=== PATIENT | male | born 1970 | race Caucasian/White ===

== ENCOUNTER → 2016-08-19 | Day surgery (SDC) | payer BC, OTHER ==
[~2016-08-19] MED LIST: BUPIVACAINE/EPINEPHRINE 0.5% 50 ML VIAL ONE; KETOROLAC TROMETHAMINE 30 MG/ML (IVP) VIAL IV PUSH ONE; LACTATED RINGER'S 1000 ML INJ 1,000 ML ONE; MIDAZOLAM HCL 2 MG/2 ML VIAL ONE; ONDANSETRON HCL 4 MG/2 ML VIAL IV PUSH ONE; PROPOFOL 200 MG/20 ML AMP IV ONE; ceFAZolin 2 GM PREMIX 50 ML ONE
--- NOTE | 2016-08-19 15:26 | TN ---
cc: GOMEZ GARCIA MD DATE OF SURGERY: 08/19/2016 PREOPERATIVE DIAGNOSIS Left inguinal hernia, reducible. POSTOPERATIVE DIAGNOSIS Left inguinal hernia, reducible, direct. SURGERY Laparoscopic left inguinal hernia repair with mesh. SURGEON Dr. Gomez Garcia [employer]TER[employer] INSPECTOR SURGEON Dr. Hunter Pardo. Due to the complexity of the laparoscopic case Dr. Pardo assisted in retraction and camera control throughout the entire case. ANESTHESIA General endotracheal. IV FLUIDS 750 cc. ESTIMATED BLOOD LOSS 5 cc. DRAINS None. COMPLICATIONS None. WOUND CLASSIFICATION Clean. FINDINGS Direct inguinal hernia. SPECIMEN None. COMPLICATIONS None. INDICATION The patient is a 45-year-old male who developed a bulging for approximately three months. He stated it continued to get worse. He does do heavy lifting and noted this complaint of bulging and mild pain. He was seen in the office for evaluation with findings of a left inguinal hernia. Therefore discussion was for laparoscopic left inguinal hernia repair. The patient agreed and elected to proceed. All the risks, benefits, alternatives and potential recurrences were discussed with the patient in detail. I advised no heavy lifting for approximately four weeks following surgery. DETAILS OF PROCEDURE The patient was taken to the operating suite and placed in supine position. He was prepped and draped in the usual sterile fashion after induction of general endotracheal anesthesia. A brief timeout was done stating correct patient, procedure and surgical site, and all were in agreement with this. Attention was first directed to the umbilicus. Local anesthetic was injected. A tarsha incision was made approximately 1.5 cm with a 15 blade. Further dissection with a hemostat and [employer] down to the anterior fascia. A tarsha was made in the anterior fascia then Metzenbaum scissors were used to cut vertically for a small distance on the anterior fascia. The incision on the anterior fascia was big enough to fit the tip of my small finger. Next, an S-retractor was used and a Kathrin clamp to dissect in between the rectus muscle and the posterior sheath. The balloon dissector was obtained and entered onto the left side and placed down to the pubic bone. A 10 mm a laparoscope was placed. Insufflation was done x30 with the bulb insufflator in order to create and dissect the intraperitoneal space. When we were satisfied with this the balloon was desufflated and removed and the port was obtained and placed and inflated. The scope was introduced and the preperitoneal space insufflated to 11 mmHg pneumoperitoneum. Two more 5 mm trocars were then placed in the midline just distal to the previous one suprapubic and mid pubic. This was done under direct visualization. The patient was placed in Trendelenburg and airplaned to the left. Further dissection was done with the blunt graspers. This was done in order to define detail, protect the structures and identify the cord and hernia sac. Noted to be a direct hernia sac. This was dissected down. There was no significant indirect hernia sac. Dissection continued laterally and medially in order to develop a plane appropriate for our mesh. A 6 x 6 was cut just off of midline down to approximately a 3 x 6 mesh was obtained, [employer]. This mesh was cut with a diagonal slit to fit the cord structures. Suture was placed to tack the corners of the mesh and fold in half, and then placed through the 12 trocar preperitoneal. The mesh was then laid across in order to fit under the cord structures and fit snuggly against the anterior pelvic wall. A tacker was used to tack this mesh in place, three places along the pubic bone, one tack medial superior and one tack more superolateral. The mesh was appropriately in place. A second piece of mesh was then re-sized by approximately 2 cm, cut long ways and the mesh was placed in the preperitoneal space and on top of the second mesh. This was secured in place with two tacks. Once we were finished with this local anesthetic was placed in the port. The preperitoneal space was then deflated. The trocars were removed. The anterior fascia was closed with 0 Prolene [id number] with 4-0 Monocryl used for skin and Mastisol and Steri-Strips used. The patient tolerated the procedure well. No intraoperative complication. The patient was extubated and taken stable to the PACU. All lap and instrument counts were correct at the end of the procedure. MD GIGI Syed/ROLAND /2:38 PM /3:10 PM
== END | disposition home or self-care (01) ==
LOC: ESDC 11:15
PROVIDERS: ATTEND Surgery
DX: K40.90 Unilateral inguinal hernia, without obstruction or gangrene, not specified as recurrent (principal)
CPT/HCPCS: 00840; 49650; C1727; C1781; J0690; J1885; J2250; J2405; J3010; J7120